=== PATIENT | male | born 1995 | race Caucasian/White ===

== ENCOUNTER 2020-10-05 11:30 | Emergency (ER) | payer OTHER, SELFPAY ==
[2020-10-05 11:32] VITALS: BP 128/79; PULSE 73; RESP 14; TEMP 37.1; O2SAT 100
--- NOTE | 2020-10-05 12:04 | ED.GENADUL_ITS ---
Discharge Plan Disposition Patient Disposition: HOME Condition: Stable Discharge Details Clinical Impression: Contusion of heel Primary Care Provider: Claire,Local ED Provider: Cristina Regan Home Meds and New Rx's Prescriptions: No Action No Known Home Meds RF: 0 Discharge Instructions Instructions: Diphtheria/Acellular Pertussis/Tetanus Vaccine (By injection), Contusion in Adults (ED), Foot Contusion (ED), Abrasion (ED) Additional Instructions: Please return immediately to the emergency department if you develop any new or worsening symptoms, if your condition does not improve as expected, or if you become otherwise concerned. It is extremely important that you call soon as possible to make an appointment to be seen in follow-up for this visit by your primary care doctor. Discharge Data Discharge Date/Time-TO BE ENTERED AT DEPARTURE: 10/05/20 13:10 Medical Decision Making Bjorn Schuster is a 25-year-old man without reported history of major medical problems who presented to emergency department with left-sided heel pain after jumping over an 8 foot fence 2 days ago and landing on his left heel. On exam patient is very well and nontoxic-appearing. There is diffuse tenderness to palpation of the left calcaneus, some mild tenderness palpation over the plantar aspect of the left midfoot. No tenderness to palpation of the ankle, full range of motion of the ankle. No tenderness palpation of the lower leg. Foot is neurovascularly intact. Concern for calcaneus/foot fracture versus contusion. Exam/history at this time not consistent with significant injury to the head, spine, thorax, abdomen, other extremities, left lower extremity proximal to the left foot. Plan for x-rays, tetanus update. xrays negative. Plan for crutches, outpt f/u. I had a lengthy discussion with Patient regarding return to emergency department precautions, home care, and importance of outpatient follow-up. Pt verbalizes understanding of the plan and is amenable. Patient discharged to home with clear plan for outpatient follow- up. All questions were answered. Disposition decision was made weighing the risks and benefits of hospitalization versus outpatient treatment, the risk for further decompensation, and the patient's wishes. Medical Records Medical records reviewed: Yes I reviewed the patient's medical records. Imaging Data Radiologic Study: Attestation: I personally reviewed and interpreted this imaging study as follows: Radiologist's impression: EXAM: XR FOOT LT COMPLETE and XR heel LT os calcis CLINICAL HISTORY: trauma, foot pain, worse over heel. TECHNIQUE: 2D digital imaging was performed. COMPARISON: No previous for comparison. FINDINGS: BONES: No acute fracture is present. No bony destructive lesion is seen. JOINTS: No dislocation present. SOFT TISSUE: Normal. IMPRESSION: Unremarkable radiographs of the left foot and heel. HPI General Mode of arrival: ambulatory . Date/Time Provider Initiated Documentation: 10/05/20 11:33 . Limitations to Documentation: no limitations . Information obtained by: patient, RN notes reviewed and old records reviewed . HPI Narrative: Bjorn Schuster is a 25-year-old man without reported history of major medical problems presenting to the emergency department heel pain. Patie nt reports that 2 days ago he jumped over a fence that was approximately 8 foot high and landed on his left heel. Patient reports that he rolled to the side and was not otherwise injured. He denies hitting his head, loss of consciousness, any other pain at the time of the accident other than left heel pain. Patient reports that heel pain has been persisting since the accident. He reports that he sustained a small scrape to the inside of the left foot, and the heel has gradually become somewhat bruised. Patient reports that he has been walking by bearing weight on the ball of his left foot. He denies any other pain, any other symptoms. Was previously in his usual state of health. No numbness or weakness. Patient is unsure of when his last tetanus shot was, thinks it may have been with his routine childhood vaccines. Related Data Home Medications Medication Instructions Recorded Confirmed Unknown [No Known Home Meds] 10/05/20 10/05/20 Allergies Allergy/AdvReac Type Severity Reaction Status Date / Time No Known Allergies Allergy Unverified 10/05/20 11:41 General Stated Complaint: Orthopedic MAILE: 4 Review of Systems Narrative: Constitutional: denies fevers Eyes: denies eye pain ENT: denies ear pain, dental pain, sore throat Cardiovascular: denies chest pain, edema Respiratory: denies SOB, cough GI: denies abdominal pain, vomiting, diarrhea : denies flank pain MSK: denies back pain, neck pain, joint pain, reports left heel pain Skin: denies rash Neuro: denies headaches, numbness, weakness [facility] Social History Smoking/Tobacco Use Status: Current-Occasional Tobacco Type: cigarettes Smoking risk assessment performed?: Yes Alcohol Intake: current Alcohol Intake frequency: a few times a month Drug use: Never Substance use type: does not use Do you feel safe at home: Yes Do you feel safe in your relationship?: Yes Exam Narrative Exam Narrative: Constitutional: well and [id number], pleasant, conversing normally HENT: head atraumatic/normocephalic/normal inspection, mucous membranes moist Eyes: conjunctiva normal, sclera normal, pupils 3mm b/l Neck: no stridor, normal ROM, trachea midline Resp: normal work of breathing, LCTAB Cardio: normal rate, normal rhythm, no murmur appreciated Skin: warm, dry, normal color, no rash Neuro: alert, not altered, grossly non-focal, normal tone Ext: left calcaneus TTP over plantar surface, mild TTP of the left midfoot over plantar aspect, no TTP of the left MTP joints, FROM left toes and left ankle without pain, left ankle NTTP, no dorsal foot TTP, mild ecchymoses over the medial and lateral aspects of the calcaneus, superficial abrasion to the left foot without bleeding or debris, DP pulses intact, sensation left distal foot intact, brisk cap refill left toes Psych: normal mood, normal affect, normal behavior Course Vital Signs Vital signs: Vital Signs Temperature 37.1 C 10/05/20 11:32 Pulse 73 10/05/20 11:32 Respiratory Rate 14 10/05/20 11:32 Blood Pressure 128/79 10/05/20 11:32 Pulse Oximetry 100 10/05/20 11:32 Temperature 37.1 C 10/05/20 11:32 Temperature Source Skin 10/05/20 11:32 Pulse 73 10/05/20 11:32 Respiratory Rate 14 10/05/20 11:32 Respiratory Effort 10/05/20 11:41 Blood Pressure 128/79 10/05/20 11:32 Blood Pressure Position Sitting 10/05/20 11:32 Pulse Oximetry 100 10/05/20 11:32 Oxygen Delivery Method Room Air 10/05/20 11:32 Oxygen Flow Rate 0 10/05/20 11:32 Pain Level 8 10/05/20 11:32
--- NOTE | 2020-10-05 12:18 | DI.RAD_ITS ---
EXAM: XR FOOT LT COMPLETE and XR heel LT os calcis CLINICAL HISTORY: trauma, foot pain, worse over heel. TECHNIQUE: 2D digital imaging was performed. COMPARISON: No previous for comparison. FINDINGS: BONES: No acute fracture is present. No bony destructive lesion is seen. JOINTS: No dislocation present. SOFT TISSUE: Normal. IMPRESSION: Unremarkable radiographs of the left foot and heel. DATA REPOSITORY: RADIATION DOSE DELIVERED:
[2020-10-05 12:49] VITALS: BP 132/58; PULSE 78; RESP 16; TEMP 37.2; O2SAT 98
== END 2020-10-05 13:10 | disposition home or self-care (01) ==
PROVIDERS: Emergency Provider Student in an Organized Health Care Education/Training Program
DX: S90.32XA Contusion of left foot, initial encounter (principal); W17.89XA Other fall from one level to another, initial encounter
CPT/HCPCS: 90471; 99284; 73630; 73650; 99283